=== PATIENT | female | born 1985 | race Caucasian/White ===

== ENCOUNTER → 2016-10-12 | Outpatient (CLI) | payer OTHER ==
--- NOTE | 2016-10-15 09:09 | DI ---
US OB TRANSVAGINAL,10/12/2016 12:52 PM: Clinical History: Established gestational age. Previous Exam: April 21, 2013 Findings: Multiple transvaginal grayscale and color Doppler sonographic images are obtained through the pelvis, and demonstrate a single live intrauterine gestation with a crown-rump length measuring 18 mm and co rresponding with an estimated gestational age of 8 weeks 3 days. Detected Doppler heart tones measure 167 beats per minute. The ovaries are within normal limits containing a few maturing follicles. Impression: Single live intrauterine gestation with estimated gestational age of 8 weeks 5 days.
== END ==
LOC: US 12:50
PROVIDERS: ATTEND Family Medicine
DX: Z36 Encounter for antenatal screening of mother (principal)
CPT/HCPCS: 76801; 76817

== ENCOUNTER → 2016-10-15 | Outpatient (CLI) | payer OTHER ==
[2016-10-15 15:34] LABS: BASOPHILS # (AUTO) 0.05 10*3/UL; BASOPHILS % (AUTO) 0.4 % (0-1); EOSINOPHILS # (AUTO) 0.07 10*3/UL; EOSINOPHILS % (AUTO) 0.5 % (0-8); HEMATOCRIT 44.1 % (37.0-47.0); HEMOGLOBIN 15.8 g/dL (12.0-16.0); LYMPHOCYTES # (AUTO) 1.83 10*3/uL; MEAN CORPUSCULAR HEMOGLOBIN 32.6 PG (27-31); MEAN CORPUSCULAR HGB CONC 35.8 g/dL (33-37); MEAN CORPUSCULAR VOLUME 91.1 FL (81-99); MEAN PLATELET VOLUME 9.1 FL (7.4-12.2); MONOCYTES # (AUTO) 0.66 10*3/UL (0.3-0.8); MONOCYTES % (AUTO) 5.2 % (5-15); NEUTROPHILS # (AUTO) 10.12 10*3/UL; NEUTROPHILS % (AUTO) 79.3 % (50-80); RED BLOOD COUNT 4.84 10^6/uL (4.20-5.40)
[2016-10-15 15:35] LABS: PLATELET MORPHOLOGY COMMENT NORMAL MORPHOLOGY (NORM); RBC MORPHOLOGY COMMENT NORMAL MORPHOLOGY (NORM); WBC MORPHOLOGY COMMENT NORMAL MORPHOLOGY (NORM)
[2016-10-15 15:56] LABS: HIV ANTIBODY NEGATIVE (N); HIV-1 P24 ANTIGEN NEGATIVE (N)
[2016-10-17 13:39] LABS: HEP B SURFACE AG Negative (Negative)
== END ==
LOC: MOB LAB 13:00
PROVIDERS: ATTEND Family Medicine
DX: Z36 Encounter for antenatal screening of mother (principal)
CPT/HCPCS: 36415; 80081; 86900; 86901; 87088

== ENCOUNTER → 2016-10-29 | Outpatient (CLI) | payer OTHER ==
--- NOTE | 2016-10-29 13:17 | DI ---
LEFT BREAST ULTRASOUND, 10/29/2016 10:27 AM: Clinical History: Left breast lump which the patient described as being identified in the upper half of the left breast. The patient also noted which she thought was a "blister" along the lateral margin of the left nipple. She indicated that it has decreased in size since she first noted the abnormalit y. The patient is . Scans are performed by the technologist and myself through all four quadrants of the left breast and nipple with the high resolution linear array probe. Color Doppler ultrasound was also performed. Scans reveal no solid or cystic mass. Specifically, no lesion is seen in the upper half of the left b reast. Inspection of the left nipple shows discoloration along the lateral margin of the nipple from roughly the 2:00 to the 4 clock position in a crescent-shaped distribution. This portion of the nippl e is english division chair than the remaining portions of the nipple. Scans through the nipple show no fluid collec tion and only mild thickening of the skin corresponding to the crescent-shaped discolored margin. Follow Up: The patient was advised to perform monthly self breast examinations to monitor the upper h assisted of the breast and the nipple over the next several months. She was instructed to contact her [facility] care provider promptly if she noted a lump during that time or if the "blister" reappears. Otherwi se, if the breast tissues remains stable, she was advised to have a follow-up breast clinical examina tion with her health care provider at the time of her routine OB appointments to verify those finding s of the patient. If at the time of the breast clinical examination there is still clinical concern r egarding this lesion, then surgical consultation would be indicated, with possible repeat ultrasound. BIRADS Category: 1. Negative. No discrete mass is identified in the upper half of the breast and no d iscrete abnormality is seen in the nipple. Assessment: Negative.
== END ==
LOC: US 10:23
PROVIDERS: ATTEND Family Medicine
DX: N63 Unspecified lump in breast (principal)
CPT/HCPCS: 76641

== ENCOUNTER → 2017-01-02 | Outpatient (CLI) | payer OTHER ==
--- NOTE | 2017-01-02 14:07 | DI ---
US OB GTE 14 WEEKS,01/02/2017 10:59 AM: Clinical History: screening. Previous Exam: October 12, 2016 Findings: Multiple transabdominal grayscale and color Doppler sonographic images are obtained through the pelvi s. The cervix is long and closed measuring 7.1 cm in length. There is no funneling. The placenta is anterior grade 0 without visible defects. The inferior tip of the placenta lies in cl ose approximation to the internal cervical os. This does not appear to cover the os. anatomy scan was grossly normal. Estimated gestational age is determined by a composite of biparietal diameter, head circumference, an d femur length yielding an estimated gestational age by ultrasound of 20 weeks 4 days. Estimated weight is 359 g (67th percentile). Detected Doppler heart tones measure 140 beats per minute. Impression: 1. Single live intrauterine gestation with size equal to dates. 2. Marginal placenta. Recommend followup imaging in 6-10 weeks to document superior migration.
== END ==
LOC: US 10:54
PROVIDERS: ATTEND Family Medicine
DX: Z36 Encounter for antenatal screening of mother (principal); Z3A.20 20 weeks gestation of pregnancy
CPT/HCPCS: 76805

== ENCOUNTER → 2017-02-27 | Outpatient (CLI) | payer OTHER ==
[2017-02-27 09:58] LABS: HEMATOCRIT 38.8 % (37.0-47.0); HEMOGLOBIN 13.1 g/dL (12.0-16.0); MEAN CORPUSCULAR HEMOGLOBIN 32.8 PG (27-31); MEAN CORPUSCULAR HGB CONC 33.8 g/dL (33-37)
[2017-02-27 09:59] LABS: MEAN PLATELET VOLUME 9.2 FL (7.4-12.2)
== END ==
LOC: LAB 08:16
PROVIDERS: ATTEND Family Medicine
DX: Z36 Encounter for antenatal screening of mother (principal); Z3A.28 28 weeks gestation of pregnancy
CPT/HCPCS: 36415; 82950; 84443; 85027

== ENCOUNTER → 2017-02-28 | Outpatient (CLI) | payer OTHER ==
--- NOTE | 2017-02-28 12:32 | DI ---
US OB , LIMITED,02/28/2017 10:58 AM: Clinical History: Marginal placenta. Previous Exam: January 02, 2017 Findings: Multiple transabdominal grayscale and color Doppler sonographic images are obtained through the pelvi s demonstrating a single live intrauterine gestation in vertex presentation. There has been superior migration of the placenta which is well clear of the internal cervical os. The cervix is long and closed measuring 4.4 cm in length. Detected Doppler heart tones measure 142 beats per minute. The placenta is anterior and grade 0 without visible defects. Estimated gestational age was determined by a composite of biparietal diameter, head circumference, a bdominal circumference and femur length yielding an estimated gestational age by ultrasound of 29 wee ks one day. Estimated weight is 1266 g (35th percentile). Impression: Single live intrauterine gestation with size equal to dates. There has been interval superior migration of the placenta without encroachment on the internal cervi matthew os.
== END ==
LOC: US 10:52
PROVIDERS: ATTEND Family Medicine
DX: O44.23 Partial placenta previa NOS or without hemorrhage, third trimester (principal); Z3A.28 28 weeks gestation of pregnancy
CPT/HCPCS: 76815